=== PATIENT | female | born 1985 | race American Indian/Alaskan Native ===

== ENCOUNTER 2018-07-04 09:29 | Outpatient (CLI) | payer OTHER | END 2018-07-04 11:45 | disposition home or self-care (01) | LOC: NST 09:29 | DX: Z34.83 Encounter for supervision of other normal pregnancy, third trimester (principal) ==

== ENCOUNTER 2018-07-11 14:07 | Outpatient (CLI) | payer OTHER ==
[2018-07-12] MEDS ORDERED: COLACE100 MG PO (08:11)
[2018-07-12] MEDS ORDERED: PNV-FERROUS FU1 EACH PO (08:12)
== END 2018-07-11 15:06 | disposition home or self-care (01) ==
LOC: NST 14:07
DX: O32.1XX0 Maternal care for breech presentation, not applicable or unspecified (principal); Z34.83 Encounter for supervision of other normal pregnancy, third trimester

== ENCOUNTER 2018-07-11 15:00 | Inpatient (IN) | payer OTHER ==
[~2018-07-11] VITALS: Ht 165.1 cm; Wt 2.7 kg
[2018-07-12] MEDS ORDERED: COLACE100 MG PO (08:11)
[2018-07-12] MEDS ORDERED: PNV-FERROUS FU1 EACH PO (08:12)
== END 2018-07-21 14:04 | disposition home or self-care (01) | DRG 788 ==
LOC: O/R 07-19 07:38 → SURG-SUITE 07-19 09:53 → OB/GYN 07-19 10:45 → SURG-SUITE 07-21 14:04
PROVIDERS: Obstetrics & Gynecology Maternal & Fetal Medicine
PROC: 4A1HXCZ Monitoring of Products of Conception, Cardiac Rate, External Approach (ICD-10-PCS; 2018-07-19)
PROC: 4A033R1 Measurement of Arterial Saturation, Peripheral, Percutaneous Approach (ICD-10-PCS; 2018-07-19)
PROC: 10D00Z1 Extraction of Products of Conception, Low, Open Approach (ICD-10-PCS; principal; 2018-07-19 10:45)
DX: O32.1XX0 Maternal care for breech presentation, not applicable or unspecified (principal); Z3A.39 39 weeks gestation of pregnancy; Z37.0 Single live birth

== ENCOUNTER 2020-09-15 08:38 | Outpatient (CLI) | payer OTHER ==
[~2020-09-15 08:38] MED LIST: COLACE100 MG PO; PNV-FERROUS FU1 EACH PO
== END 2020-09-15 09:53 | disposition home or self-care (01) ==
LOC: NST 08:38
PROVIDERS: ATTEND Obstetrics & Gynecology Maternal & Fetal Medicine
DX: Z34.83 Encounter for supervision of other normal pregnancy, third trimester (principal)

== ENCOUNTER 2020-09-22 09:30 | Inpatient (IN) | payer OTHER ==
[~2020-09-22] VITALS: Ht 167.6 cm; Wt 2.7 kg
[2020-10-03] MEDS ORDERED: KETO10TA2 PO (07:59)
[2020-10-03] MEDS ORDERED: OXYC1TAB9 PO (08:00)
== END 2020-10-03 11:42 | disposition home or self-care (01) | DRG 788 ==
LOC: OB/GYN 09-30 07:00 → SURG-SUITE 09-30 13:30 → O/R 09-30 13:30 → SURG-SUITE 09-30 14:34
PROVIDERS: ADMIT Obstetrics & Gynecology Maternal & Fetal Medicine; ATTEND Obstetrics & Gynecology Maternal & Fetal Medicine
PROC: 4A1HXFZ Monitoring of Products of Conception, Cardiac Rhythm, External Approach (ICD-10-PCS; 2020-09-30)
PROC: 10D00Z1 Extraction of Products of Conception, Low, Open Approach (ICD-10-PCS; principal; 2020-09-30 07:00)
DX: O82 Encounter for cesarean delivery without indication (principal); Z3A.38 38 weeks gestation of pregnancy; Z37.0 Single live birth

== ENCOUNTER 2020-09-25 11:17 | Outpatient (CLI) | payer OTHER | END 2020-09-25 12:03 | disposition home or self-care (01) | LOC: NST 11:17 | PROVIDERS: ATTEND Obstetrics & Gynecology Maternal & Fetal Medicine | DX: Z34.83 Encounter for supervision of other normal pregnancy, third trimester (principal) ==